=== PATIENT | female | born 1950 | race Caucasian/White ===

== ENCOUNTER 2017-02-21 07:43 | Day surgery (SDC) | payer MEDICARE ==
[~2017-02-21] VITALS: Ht 170.2 cm; Wt 61.8 kg
[~2017-02-21 07:43] MED LIST: CeFAZolin 2 GM/DEXTROSE 50 ML IV ONE; LORazepam 2 MG/ML VIAL IVP PRN; SODIUM CHLORIDE 0.9% 1,000 ML IV ONE; VANCOMYCIN HCL 1 GM/D5% WATER 200 ML IV ONE
[2017-02-21] MEDS ORDERED: SODIUM CHLORIDE 0.9% 1,000 ML IV ONE (08:25)
[2017-02-21] MEDS ORDERED: MIDAZOLAM HCL 2 MG/2 ML VIAL ONE (08:28)
[2017-02-21] MEDS ORDERED: FentaNYL CITRATE-PF 100 MCG/2 ML VIAL ONE (08:28)
[2017-02-21] MEDS ORDERED: THYR16.2 PO (08:44)
[2017-02-21 09:49] LABS: ALANINE AMINOTRANSFERASE 25 U/L (12-78); ANION GAP 12 mmol/L (8-16); ASPARTATE AMINOTRANSFERASE 21 U/L (15-37); BILIRUBIN,TOTAL 0.5 mg/dL (0.1-1.0); CALCIUM, TOTAL 10.9 mg/dL (8.8-10.5); CARBON DIOXIDE 24 mmol/L (22-29); CHLORIDE 106 mmol/L (98-107); CREATININE 0.89 mg/dL (0.60-1.30); GLOMERULAR FILTR. RATE CALC > 60 mL/min (>60); POTASSIUM 4.1 mmol/L (3.5-5.1); SODIUM SERUM 142 mmol/L (136-145); THYROID STIMULATING HORMONE 6.26 uIU/mL (0.36-3.74); TOTAL PROTEIN, SERUM 8.2 g/dL (6.4-8.2); UREA NITROGEN, BLOOD 17 mg/dL (7-18)
[2017-02-21] MEDS ORDERED: CLINDAMYCIN 600 MG/D5% WATER 50 ML IV ONE (10:15)
[2017-02-21 10:30] LABS: BASOPHILS % (AUTO) 0.2 % (0.0-2.0); EOSINOPHILS % (AUTO) 0.4 % (1.0-6.0); HEMATOCRIT 35.4 % (36-46); LYMPHOCYTES # (AUTO) 1.1 K/uL (1.0-4.8); LYMPHOCYTES % (AUTO) 15.4 % (22.0-44.0); MEAN CORPUSCULAR HEMOGLOBIN 33.2 pg (26.0-34.0); MEAN CORPUSCULAR VOLUME 98 fL (80-100); MONOCYTES # (AUTO) 0.7 K/uL (0.1-1.0); MONOCYTES % (AUTO) 9.9 % (2.0-9.0); NEUTROPHILS # (AUTO) 5.3 K/uL (1.8-7.7); NEUTROPHILS % (AUTO) 74.1 % (40.0-70.0); PLATELET COUNT (AUTO) 221 K/uL (150-450); RED BLOOD CELL COUNT(AUTO) 3.63 MIL/uL (4.00-5.20); RED CELL DISTRIBUTION WIDTH 13.5 % (11.5-14.5); WHITE BLOOD COUNT (AUTO) 7.1 K/uL (4.5-11.0)
[2017-02-21] MEDS ORDERED: FentaNYL CITRATE-PF 100 MCG/2 ML VIAL IVP ONE (10:38)
[2017-02-21] MEDS ORDERED: SODIUM CHLORIDE 0.9% 1,000 ML IV SCH (10:43)
[2017-02-21] MEDS ORDERED: HYDROmorphone 2 MG/ML SYRINGE IVP PRN (10:45)
[2017-02-21] MEDS ORDERED: HYDROmorphone HCL 2 MG TABLET PO ONE (10:45)
[2017-02-21] MEDS ORDERED: MIDAZOLAM HCL 2 MG/2 ML VIAL IVP ONE (11:01)
[2017-02-21] MEDS ORDERED: HYDROmorphone HCL 2 MG TABLET ONE ×2 (12:30→12:32)
== END 2017-02-21 14:00 | disposition home or self-care (01) ==
LOC: SDS 07:43 → EDSTATUS 10:00 → SDS 14:00
PROVIDERS: ATTEND Radiology Diagnostic Radiology
DX: C50.912 Malignant neoplasm of unspecified site of left female breast (principal); R59.0 Localized enlarged lymph nodes; A69.20 Lyme disease, unspecified; M54.9 Dorsalgia, unspecified; E03.9 Hypothyroidism, unspecified; Z88.0 Allergy status to penicillin; Z88.2 Allergy status to sulfonamides; Z88.8 Allergy status to other drugs, medicaments and biological substances; Z90.49 Acquired absence of other specified parts of digestive tract; Z98.890 Other specified postprocedural states
CPT/HCPCS: 19105; 36415; 80053; 84439; 84443; 85025; 86300 ×2; 93005; 99152; 99153; C2618; J2250; J3010; J3370; J3490; J7030